=== PATIENT | male | born 1990 | race Caucasian/White ===

== ENCOUNTER 2024-08-23 20:50 | Outpatient (REF) | payer MEDICAID, SELFPAY ==
[2024-08-25 12:32] LABS: Chlamydia Result Negative (Negative); GC Result Negative (Negative)
== END 2024-08-23 20:51 | disposition home or self-care (01) ==
LOC: LBN 20:50
PROVIDERS: PCP Pediatrics; Visit Provider Nurse Practitioner Family
DX: Z11.3 Encounter for screening for infections with a predominantly sexual mode of transmission (principal)
CPT/HCPCS: 87491; 87591